=== PATIENT | male | born 1960 | race Caucasian/White ===

== ENCOUNTER 2016-10-21 03:00 | Emergency (ER) | payer OTHER ==
[~2016-10-21] VITALS: Ht 170.2 cm; Wt 79.5 kg
[~2016-10-21 03:00] MED LIST: CEPH-443 PO; HYDR-762 PO
[2016-10-21 03:12] VITALS: Ht 170.2 cm; Wt 79.5 kg
[2016-10-21] MEDS ORDERED: morphine 4 MG/ML VIAL IV STA (03:55)
[2016-10-21] MEDS ORDERED: SOD CHLORIDE 0.9% 500 ML IV STA (03:55)
[2016-10-21] MEDS ORDERED: ONDANSETRON 4 MG INJ IV STA (03:55)
--- NOTE | 2016-10-21 04:23 | RADRPT ---
PROCEDURE: XR Chest. CLINICAL INDICATION: Abdominal pain TECHNIQUE: AP Portable chest. COMPARISON: No pertinent prior examinations were submitted for comparison. FINDINGS: The cardiomediastinal silhouette is normal.The aortic arch is calcified. No focal consolidation, ple ural effusion or pneumothorax is seen. The osseous structures are intact. IMPRESSION: No radiographic evidence of acute cardiopulmonary disease. RPTAT: HCNS Physician Jose Date Time Electronically viewed and signed by José Miguel Sheikh Physician on 10/21/2016 04:22 CS/
[2016-10-21 04:35] LABS: BASOPHILS % 0.4 % (0.0-2.0); EOSINOPHILS # 0.3 10^3/ul (0.0-0.5); EOSINOPHILS % 3.8 % (0.0-7.0); HEMATOCRIT 42.9 % (42.0-52.0); HEMOGLOBIN 14.1 g/dl (14.0-18.0); LYMPHOCYTES # 1.7 10^3/ul (0.8-2.9); LYMPHOCYTES % 24.4 % (15.0-51.0); MEAN CORPUSCULAR HEMOGLOBIN 27.2 pg (29.0-33.0); MEAN CORPUSCULAR HGB CONC 32.9 g/dl (32.0-37.0); MEAN CORPUSCULAR VOLUME 82.8 fl (82.0-101.0); MEAN PLATELET VOLUME 10.7 fl (7.4-10.4); MONOCYTE # 0.5 10^3/ul (0.3-0.9); MONOCYTES % 7.6 % (0.0-11.0); NEUTROPHILS % 63.5 % (39.0-77.0); PLATELET COUNT 178 10^3/UL (140-415); RED BLOOD COUNT 5.18 10^6/ul (4.70-6.10); RED CELL DISTRIBUTION WIDTH 12.8 % (11.5-14.5); WHITE BLOOD COUNT 7.1 10^3/ul (4.8-10.8)
[2016-10-21 04:48] LABS: ALANINE AMINOTRANSFERASE 43 IU/L (13-69); ALBUMIN 4.3 g/dl (3.3-4.9); ALBUMIN/GLOBULIN RATIO 1.43; ALKALINE PHOSPHATASE 142 IU/L (42-121); ANION GAP 20 (8-16); ASPARTATE AMINO TRANSFERASE 33 IU/L (15-46); BILIRUBIN,INDIRECT 0.1 mg/dl (0-1.1); BILIRUBIN,TOTAL 0.1 mg/dl (0.2-1.3); BLOOD UREA NITROGEN 18 mg/dl (7-20); CALCIUM 9.7 mg/dl (8.4-10.2); CARBON DIOXIDE 29 mmol/L (21-31); CHLORIDE 99 mmol/L (97-110); CREATININE 0.82 mg/dl (0.61-1.24); GLUCOSE 117 mg/dl (70-220); POTASSIUM 4.3 mmol/L (3.5-5.1); SODIUM 144 mmol/L (135-144); TOTAL PROTEIN 7.3 g/dl (6.1-8.1)
[2016-10-21] MEDS ORDERED: HYDROmorphONE 1 MG/ML SYG IV STA (04:54)
[2016-10-21] MEDS ORDERED: IBUP800T25 PO (04:57)
[2016-10-21] MEDS ORDERED: ENAL20TA PO (04:57)
[2016-10-21] MEDS ORDERED: NIT4 SL (04:57)
[2016-10-21] MEDS ORDERED: METO-429 PO (04:57)
[2016-10-21] MEDS ORDERED: SIMV10TA PO (04:57)
[2016-10-21] MEDS ORDERED: TRAM-40 PO (04:57)
[2016-10-21] MEDS ORDERED: GABA300C16 PO (04:57)
[2016-10-21] MEDS ORDERED: ASPI81TA3 PO (04:57)
[2016-10-21] MEDS ORDERED: LOSA100T7 PO (04:57)
[2016-10-21 05:09] LABS: TROPONIN-I < 0.012 ng/ml (0.00-0.12)
[2016-10-21 05:53] LABS: ADD UMIC NO; UR ASCORBIC ACID NEGATIVE (NEGATIVE); UR BILIRUBIN (Dip) NEGATIVE (NEGATIVE); UR BLOOD (Dip) NEGATIVE (NEGATIVE); UR CLARITY SLIGHTLY CLOUDY (CLEAR); UR COLOR YELLOW (YELLOW); UR GLUCOSE (Dip) NEGATIVE (NEGATIVE); UR KETONES (Dip) NEGATIVE (NEGATIVE); UR LEUKOCYTE ESTERASE (Dip) NEGATIVE Leu/ul (NEGATIVE); UR MUCUS FEW /HPF (NONE SEEN); UR NITRITE (Dip) NEGATIVE (NEGATIVE); UR RBC 1 /HPF (0-5); UR TOTAL PROTEIN (Dip) NEGATIVE (NEGATIVE); UR UROBILINOGEN (Dip) NEGATIVE (NEGATIVE)
--- NOTE | 2016-10-21 05:53 | RADRPT ---
PROCEDURE: CT ABDOMEN/PELVIS WITHOUT CONTRAST CLINICAL INDICATION: 56-year-old male with abdominal pain. TECHNIQUE: The study was performed utilizing a GE [employer] VCT 64-slice CT scanner. Direct axia l sections were obtained through the abdomen and pelvis without the use of intravenous contrast mate rial. Sagittal and coronal reformations were obtained. One or more of the following dose reduction t echniques were utilized: automated exposure control, adjustment of the mA and/or kV according to pat ient's size or use of iterative reconstruction technique. The images were reviewed on a PACS workst [employer]. CTD/vol = 17.8 mGy; Total Exam DLP = 920.4 mGy-cm. COMPARISON: None. FINDINGS: There is minimal bibasilar subsegmental atelectasis. There is no evidence for significant pleural e ffusion. The liver has a normal size and contour without focal areas of abnormal density. No intrah epatic nor extrahepatic biliary ductal dilatation is seen. Surgical clips are present within the gal lbladder fossa from prior cholecystectomy. The pancreas is without areas of abnormal attenuation. The spleen is identified and has a normal size without abnormal density. The adrenal glands are unre markable. There is a right mid renal cyst measuring approximately 5.2 x 3.5 x 5.3 cm. The left kidn ey is without abnormal density, calculi or obstruction.. No hydroureteronephrosis nor nephroureterol ithiasis is evident. The urinary bladder contains urine. There is a small umbilical hernia with an o pening of 10 x 18 mm containing fat. There is mild retained stool identified throughout the colon wi thout obstruction. There appears to be appendiceal stump without periappendiceal inflammatory changes. The prostate is mildly prominent measuring approximately 4.2 x 4.7 x 6.2 cm. There is no significant free fluid. Phleboliths are seen within the pelvis. The aortoiliac vessels are without aneurysmal dilatation. Mild dextroscoliosis is present. Degenerative changes are seen within the sp ine most prominently at L2-3 IMPRESSION: 1. Status post cholecystectomy. 2. Right renal cyst. 3. Small umbilical hernia containing fat. 4. Mild retained stool without obstruction. 5. Mildly enlarged prostate. 6. Mild dextroscoliosis and degenerative changes within the spine. .Vance Sweeney MD, MD Date Time Electronically viewed and signed by .Vance Sweeney MD, MD on 10/21/2016 05:53 ./
[2016-10-21 06:03] VITALS: TEMP 97.6
[2016-10-21] MEDS ORDERED: KETOROLAC 30 MG INJ IV STA (06:08)
[2016-10-21 06:21] VITALS: BP 152/96; PULSE 72; RESP 18
[2016-10-21] MEDS ORDERED: NAPR-688 PO (06:22)
[2016-10-21] MEDS ORDERED: MAGN296S40 PO (06:22)
[2016-10-21] MEDS ORDERED: ONDA4TAB14 PO (06:22)
[2016-10-21] MEDS ORDERED: POLY17PO6 PO (06:22)
--- NOTE | 2016-10-21 06:44 | ERD ---
ER Documentation Chief Complaint Date/Time DATE: 10/21/16 TIME: 06:25 Chief Complaint AP radiating to the back for 2 hours HPI This 56-year-old male presents emergency room for abdominal pain on and off for a couple days. It is worse the last 2 hours. States that he is mild nausea as well. The pain is generalized across his whole abdomen feels like an aching pain. Is intermittent. He has had no fever chills. ROS All systems reviewed and are negative except as per history of present illness. Medications Home Meds Active Scripts Naproxen* (Naproxen*) 500 Mg Tablet, 500 MG PO BID Y for PAIN, #20 TAB Prov:JOHNNY FORD DO 10/21/16 Ondansetron (Ondansetron Odt) 4 Mg Tab.rapdis, 4 MG PO Q6H Y for NAUSEA AND/OR VOMITING, #10 TAB Prov:JOHNNY FORD DO 10/21/16 Magnesium Citrate* (Magnesium Citrate*) 296 Ml Solution, 296 ML PO ONCE, #1 BOTTLE Prov:JOHNNY FORD DO 10/21/16 Polyethylene Glycol* (Miralax*) 17 Gm Powd.pack, 17 GM PO DAILY, #10 Prov:JOHNNY FORD DO 10/21/16 Reported Medications Enalapril Maleate* (Enalapril Maleate*) 20 Mg Tablet, 20 MG PO DAILY, TAB 10/21/16 Gabapentin* (Gabapentin*) 300 Mg Capsule, 300 MG PO BID, #60 CAP 10/21/16 Tramadol Hcl* (Ultram*) 50 Mg Tablet, 50 MG PO Q6H Y for PAIN, TAB 10/21/16 Aspirin* (Aspirin* Chew) 81 Mg Tab.chew, 81 MG PO DAILY, TAB.CHEW 10/21/16 Metoprolol Tartrate* (Lopressor*) 50 Mg Tab, 50 MG PO BID, #60 TAB 10/21/16 Simvastatin* (Zocor*) 10 Mg Tablet, 10 MG PO QHS, #30 TAB 10/21/16 Losartan Potassium* (Losartan Potassium*) 100 Mg Tablet, 100 MG PO DAILY, TAB 10/21/16 Ibuprofen* (Ibuprofen*) 800 Mg Tab, 800 MG PO TID Y for PRN, TAB 10/21/16 Nitroglycerin (Nitrostat) 0.4 Mg Subl, 0.4 MG SL Q5MIN Y for CHEST PAIN, BOTTLE 10/21/16 Discontinued Scripts Hydrocodone Bit-Acetaminophen* (Malo*) 10-325 Mg Tablet, 1 TAB PO Q6 Y for PAIN , #7 TAB Prov:NANDINIRITA KELIN 03/29/15 Cephalexin* (Keflex*) 500 Mg Capsule, 500 MG PO QID for 7 Days, CAP Prov:RITA DELATORRE KELIN 03/29/15 Allergies Allergies: Coded Allergies: No Known Allergy (Unverified , 10/21/16) PMhx/Soc History of Surgery: Yes (Right shoulder surgery (x2), cholecystectomy, appendectomy, right forearm) Hx Cardiac Disorders: Yes (HTN) Hx Psychiatric Problems: No Hx Miscellaneous Medical Probl: No Hx Alcohol Use: No Hx Substance Use: No Hx Tobacco Use: No Smoking Status: Never smoker Physical Exam Vitals Vital Signs Date Time Temp Pulse Resp B/P Pulse Ox O2 Delivery O2 Flow Rate FiO2 10/21/16 06:03 97.6 70 18 152/89 97 Nasal Cannula 2.0 10/21/16 03:12 96.8 71 22 175/93 99 Physical Exam Const: [] Mild distress, appears uncomfortable Head: Atraumatic Eyes: Normal Conjunctiva ENT: Normal External Ears, Nose and Mouth. Neck: Full range of motion..~ No meningismus. Resp: Clear to auscultation bilaterally Cardio: Regular rate and rhythm, no murmurs Abd: Soft, mild generalized abdominal tenderness without guarding or rebound , non distended. Normal bowel sounds Skin: No petechiae or rashes Back: No midline or flank tenderness Ext: No cyanosis, or edema Neur: Awake and alert and oriented 3, no focal deficits Psych: Normal Mood and Affect Result Diagram: 10/21/16 0400 10/21/16 0400 Results 24 hrs Laboratory Tests Test 10/21/16 04:00 10/21/16 05:00 White Blood Count 7.110^3/ul Red Blood Count 5.1810^6/ul Hemoglobin 14.1g/dl Hematocrit 42.9% Mean Corpuscular Volume 82.8fl Mean Corpuscular Hemoglobin 27.2pg Mean Corpuscular Hemoglobin Concent 32.9g/dl Red Cell Distribution Width 12.8% Platelet Count 91855^3/UL Mean Platelet Volume 10.7fl Neutrophils % 63.5% Lymphocytes % 24.4% Monocytes % 7.6% Eosinophils % 3.8% Basophils % 0.4% Nucleated Red Blood Cells % 0.0/100WBC Neutrophils # (Manual) 4.510^3/ul Lymphocytes # 1.710^3/ul Monocytes # 0.510^3/ul Eosinophils # 0.310^3/ul Basophils # 0.010^3/ul Nucleated Red Blood Cells # 0.010^3/ul Sodium Level 144mmol/L Potassium Level 4.3mmol/L Chloride Level 99mmol/L Carbon Dioxide Level 29mmol/L Anion Gap 20 Blood Urea Nitrogen 18mg/dl Creatinine 0.82mg/dl Glucose Level 117mg/dl Calcium Level 9.7mg/dl Total Bilirubin 0.1mg/dl Direct Bilirubin 0.00mg/dl Indirect Bilirubin 0.1mg/dl Aspartate Amino Transf (AST/SGOT) 33IU/L Alanine Aminotransferase (ALT/SGPT) 43IU/L Alkaline Phosphatase 142IU/L Troponin I < 0.012ng/ml Total Protein 7.3g/dl Albumin 4.3g/dl Globulin 3.00g/dl Albumin/Globulin Ratio 1.43 Lipase 74U/L Urine Color YELLOW Urine Clarity SLIGHTLY CLOUDY Urine pH 7.0 Urine Specific [place] 1.020 Urine Ketones NEGATIVEmg/dL Urine Nitrite NEGATIVEmg/dL Urine Bilirubin NEGATIVEmg/dL Urine Urobilinogen NEGATIVEmg/dL Urine Leukocyte Esterase NEGATIVELeu/ul Urine Microscopic RBC 1/HPF Urine Microscopic WBC 1/HPF Urine Mucus FEW/HPF Urine Hemoglobin NEGATIVEmg/dL Urine Glucose NEGATIVEmg/dL Urine Total Protein NEGATIVEmg/dl Current Medications Medications (Trade) Dose Ordered Sig/Nick Route PRN Reason Start Time Stop Time Status Last Admin Dose Admin Sodium Chloride (NS) 500 ml @ 500 mls/hr Q1H STAT IV 10/21/16 03:55 10/21/16 04:54 DC 10/21/16 04:07 Morphine Sulfate (morphine) 4 mg ONCE STAT IV 10/21/16 03:55 10/21/16 03:57 DC 10/21/16 04:07 Ondansetron HCl (Zofran Inj) 4 mg ONCE STAT IV 10/21/16 03:55 10/21/16 03:57 DC 10/21/16 04:07 Hydromorphone HCl (Dilaudid) 1 mg ONCE STAT IV 10/21/16 04:54 10/21/16 05:02 DC 10/21/16 05:06 Ketorolac Tromethamine (Toradol) 30 mg ONCE STAT IV 10/21/16 06:08 10/21/16 06:10 DC 10/21/16 06:12 Procedures/MDM Constipation with retained stool throughout colon. No other abnormality is identified. Prior to arrival of the oncoming physician had reordered a workup and give the patient Dilaudid. This did help with his pain. I also gave Toradol. He was hydrated with a liter of normal saline and given Zofran. He felt much better. No other abdominal abnormalities are identified except for constipation which does fit the patient's pain pattern. No signs of cardiac ischemia. Cardiac workup was performed because the acute onset of pain radiating to the back. Going to discharge him with MiraLAX, magnesium citrate, naproxen, Zofran ODT as needed nausea. Also did talk to the family at length at bedside about the laboratories given him copies of laboratory and CT. Told him of the need to hydrate well for the constipation. Primary care follow-up in 2 3 days and return precautions EKG interpretation: Normal sinus rhythm, normal intervals. No ST or T-wave changes concerning for acute ischemia environmental monitoring technician interpretation: Normal sinus rhythm without arrhythmia CT abdomen pelvis interpretation: Mild retained stool throughout colon without any signs of colonic obstruction, no free air perforation evidence, no fat stranding, no fractures. Chest x-ray interpretation: I see no acute process. I see no widened mediastinum, pneumothorax, no infiltrates, no pulmonary edema, no fracture Departure Diagnosis: Primary Impression: Acute constipation Additional Impression: Acute abdominal pain Condition: Stable Patient Instructions: Abdominal Pain, Treating Constipation Additional Instructions: Call your primary care doctor TOMORROW for an appointment during the next 2-3 days.See the doctor sooner or return here if your condition worsens before your appointment time. JOHNNY FORD DO Oct 21, 2016 06:35
== END 2016-10-21 06:35 | disposition home or self-care (01) ==
LOC: E/R 03:00
DX: K59.00 Constipation, unspecified (principal); I10 Essential (primary) hypertension; R11.0 Nausea; Z79.82 Long term (current) use of aspirin
CPT/HCPCS: 36415; 71010; 74176; 80053; 81001; 83690; 84484; 85025; 93005; 96374; 96375; J1170; J1885; J2270; J2405; J7040; Z7502; 81003